=== PATIENT | female | born 2000 | race Caucasian/White ===

== ENCOUNTER 2020-02-25 08:28 | Emergency (ER) | payer OTHER ==
[2020-02-25 09:06] LABS: APPEARANCE,URINE CLEAR; BILIRUBIN,URINE NEGATIVE (NEGATIVE); COLOR,URINE YELLOW; GLUCOSE, URINE NEGATIVE (NEGATIVE); KETONES,URINE NEGATIVE (NEGATIVE); LEUKOCYTE ESTERASE,URINE NEGATIVE (NEGATIVE); NITRITE,URINE NEGATIVE (NEGATIVE); PROTEIN,URINE NEGATIVE (NEGATIVE); URINE SPECIFIC GRAVITY 1.006; UROBILINOGEN,URINE NEGATIVE mg/dL (<2.0)
[2020-02-25 10:36] LABS: ABSOLUTE EOSINOPHILS # (AUTO) 0.1 10^3/uL (0.0-0.6); ABSOLUTE MONOCYTES (AUTO) 0.3 10^3/uL (0.1-1.4); ABSOLUTE NEUT (AUTO) 4.3 10^3/uL (1.7-8.2); BASOPHILS % (AUTO) 0.4 % (0-2); EOSINOPHILS % (AUTO) 1.5 % (0-6); HEMATOCRIT 40.3 % (36.0-47.0); HEMOGLOBIN 13.8 g/dL (12.0-15.5); LYMPHOCYTES % (AUTO) 30.4 % (13-45); MEAN CORPUSCULAR HEMOGLOBIN 29.9 pg (27.0-33.4); MEAN CORPUSCULAR HGB CONC 34.3 g/dL (32.0-36.0); MEAN CORPUSCULAR VOLUME 87 fl (80-97); MONOCYTES % (AUTO) 4.2 % (3-13); PLATELET COUNT 276 10^3/uL (150-450); RED BLOOD COUNT 4.61 10^6/uL (3.72-5.28); SEGMENTED NEUTROPHILS % (AUTO) 63.5 % (42-78); TOTAL CELLS COUNTED % (AUTO) 100 %; WHITE BLOOD COUNT 6.7 10^3/uL (4.0-10.5)
[2020-02-25] MEDS ORDERED: NORMAL SALINE 1000 ML 1,000 ML IV ONE (11:34)
--- NOTE | 2020-02-25 11:46 | ER Document Report ---
ED GI/ - General Chief Complaint: Vaginal Bleeding Stated Complaint: VAGINAL BLEEDING Time Seen by Provider: 02/25/20 11:01 Primary Care Provider: Anthony Magallanes REHABILITATION MANAGER [Provider Group] - Follow up as needed [facility] [[facility] - Follow up as needed Mode of Arrival: Ambulatory Information source: Patient Notes: Patient presents reporting heavy menses for the past 5 days with dizziness. Patient states her symptoms worsened yesterday. Patient denies passing any clots. Patient denies any urinary symptoms. Patient does report some mild cramping. Patient does have a Nexplanon that was placed last year. - HPI Patient complains to provider of: Pelvic pain, Vaginal bleeding. No: Vaginal discharge, Vomiting Onset: Other - 5 days Timing/Duration: Persistent Quality of pain: Cramping Pain Level: 1 Vaginal bleeding (Compared to normal period): Heavier. denies: Passing clots Sexual history: Active Associated symptoms: Lightheaded. denies: Dysuria, Fever, Urinary hesitancy, Urinary frequency, Urinary retention, Urinary urgency, Vomiting Exacerbated by: Denies Relieved by: Denies Similar symptoms previously: No Recently seen / treated by doctor: No - Related Data Allergies/Adverse Reactions: No Known Allergies Allergy (Unverified 02/25/20 08:35) Past Medical History - General Information source: Patient Last Menstrual Period: 02/21/2019 - Social History Smoking Status: Never Smoker Frequency of alcohol use: None Drug Abuse: None Occupation: [employer] Lives with: Spouse/Significant other Family History: Reviewed & Not Pertinent - Medical History Medical History: Negative Past Surgical History: Reports: Hx Appendectomy - 2013 Review of Systems - Review of Systems Constitutional: No symptoms reported. denies: Fever, Recent illness EENT: No symptoms reported Cardiovascular: Lightheaded. denies: Chest pain Respiratory: No symptoms reported. denies: Cough, Short of breath Gastrointestinal: Abdominal pain. denies: Nausea, Vomiting Genitourinary: No symptoms reported. denies: Dysuria Female Genitourinary: Heavy/abnormal periods, Irregular period, Vaginal bleeding. denies: Musculoskeletal: No symptoms reported. denies: Back pain Skin: No symptoms reported Hematologic/Lymphatic: No symptoms reported Neurological/Psychological: No symptoms reported Physical Exam - Vital signs Vitals: Temp Pulse Resp BP Pulse Ox 98.4 F 68 14 142/66 H 100 02/25/20 08:36 01/20/21 08:36 02/25/20 08:36 02/25/20 08:36 02/25/20 08:36 - General General appearance: Appears well, Alert In distress: None - HEENT Head: Normocephalic, Atraumatic Eyes: Normal Conjunctiva: Normal Nasal: Normal Mouth/Lips: Normal Mucous membranes: Normal Neck: Normal, Supple - Respiratory Respiratory status: No respiratory distress Chest status: Nontender Breath sounds: Normal. No: Rales, Rhonchi, Stridor, Wheezing Chest palpation: Normal - Cardiovascular Rhythm: Regular Heart sounds: S1 appreciated, S2 appreciated - Abdominal Inspection: Normal Distension: No distension Bowel sounds: Normal Tenderness: Tender - lower pelvic Organomegaly: No organomegaly - Genitourinary External exam: Normal Speculum exam: Cervix closed Vaginal bleeding: Mild Bimanuel exam: Normal. No: Adnexal mass, Adnexal tenderness Notes: RN kaycee as standby - Back Back: Normal, Nontender. No: CVA tenderness - Extremities General upper extremity: Normal inspection, Normal ROM General lower extremity: Normal inspection, Normal ROM - Neurological Neuro grossly intact: Yes Cognition: Normal Yasmin Coma Scale Eye Opening: Spontaneous Yasmin Coma Scale Verbal: Oriented [place] Coma Scale Motor: Obeys Commands [place] Coma Scale Total: 15 - Psychological Associated symptoms: Normal affect, Normal mood - Skin Skin Temperature: Warm Skin Moisture: Dry Skin Color: Normal Course - Re-evaluation Re-evalutation: 02/25/20 14:37 Patient with hemorrhagic right ovarian follicle noted on ultrasound. Patient with stable vital signs and H&H. Patient with incidental findings on urinalysis worrisome for UTI, culture will be obtained. Patient encouraged to follow-up with a infection control manager for follow-up from today's visit. Discussed worsening signs or symptoms of patient should return immediately for. Patient verbalized understanding and is agreeable with discharge plan of care. - Vital Signs Vital signs: Temp Pulse Resp BP Pulse Ox 98.4 F 50 L 16 116/53 L 99 02/25/20 14:17 02/25/20 14:17 02/25/20 14:17 02/25/20 14:17 02/25/20 14:17 - Laboratory Results Result Diagrams: 02/25/20 09:57 02/25/20 09:57 Laboratory Results Interpreted: 02/25/20 02/25/20 08:44 09:57 Sodium 136.7 L Urine Blood LARGE H 02/25/20 14:37 Labs- All tests 24 hr 02/25/20 02/25/20 02/25/20 08:44 09:57 09:57 WBC 6.7 RBC 4.61 Hgb 13.8 Hct 40.3 MCV 87 MCH 29.9 MCHC 34.3 RDW 13.0 Plt Count 276 Lymph % (Auto) 30.4 [place] % (Auto) 4.2 Eos % (Auto) 1.5 Baso % (Auto) 0.4 Absolute Neuts (auto) 4.3 Absolute Lymphs (auto) 2.0 Absolute Monos (auto) 0.3 Absolute Eos (auto) 0.1 Absolute Basos (auto) 0.0 Seg Neutrophils % 63.5 Sodium 136.7 L Potassium 4.5 Chloride 106 Carbon Dioxide 26 Anion Gap 5 BUN 9 Creatinine 0.65 Est GFR ( Amer) > 60 Est GFR (MDRD) Non-Af > 60 Glucose 104 Calcium 9.6 Serum HCG, Qual Urine Color YELLOW Urine Appearance CLEAR Urine pH 7.0 Ur Specific Dillon 1.006 Urine Protein NEGATIVE Urine Glucose (UA) NEGATIVE Urine Ketones NEGATIVE Urine Blood LARGE H Urine Nitrite NEGATIVE Urine Bilirubin NEGATIVE Urine Urobilinogen NEGATIVE Ur Leukocyte Esterase NEGATIVE Urine WBC (Auto) 58 Urine RBC (Auto) >182 Urine Bacteria (Auto) TRACE Squamous Epi Cells Auto 2 Urine Mucus (Auto) RARE Urine Ascorbic Acid NEGATIVE Epi Cells (Wet Prep) Bacteria (Wet Prep) Trichomonas (Wet Prep) Vaginal WBC Vaginal RBC Vaginal Yeast 02/25/20 02/25/20 09:57 12:31 WBC RBC Hgb Hct MCV MCH MCHC RDW Plt Count Lymph % (Auto) [place] % (Auto) Eos % (Auto) Baso % (Auto) Absolute Neuts (auto) Absolute Lymphs (auto) Absolute Monos (auto) Absolute Eos (auto) Absolute Basos (auto) Seg Neutrophils % Sodium Potassium Chloride Carbon Dioxide Anion Gap BUN Creatinine Est GFR ( Amer) Est GFR (MDRD) Non-Af Glucose Calcium Serum HCG, Qual NEGATIVE Urine Color Urine Appearance Urine pH Ur Specific Dillon Urine Protein Urine Glucose (UA) Urine Ketones Urine Blood Urine Nitrite Urine Bilirubin Urine Urobilinogen Ur Leukocyte Esterase Urine WBC (Auto) Urine RBC (Auto) Urine Bacteria (Auto) Squamous Epi Cells Auto Urine Mucus (Auto) Urine Ascorbic Acid Epi Cells (Wet Prep) 3+ EPITHELIALS SEEN Bacteria (Wet Prep) 4+ BACTERIA SEEN Trichomonas (Wet Prep) NO TRICHOMONAS SEEN Vaginal WBC FEW WBCS SEEN Vaginal RBC 4+ RBCS SEEN Vaginal Yeast NO YEAST SEEN Critical Laboratory Results Reviewed: No Critical Results - Radiology Results Critical Radiology Results Reviewed: No Critical Results - EKG Interpretation by Me EKG shows normal: Sinus rhythm Rate: Normal Rhythm: NSR When compared to previous EKG there are: Previous EKG unavailable Additional EKG results interpreted by me: 02/25/20 13:33 Sinus rhythm with a rate of 56, QTc 402, no acute ischemic changes no prior EKG available for comparison Discharge - Discharge Clinical Impression: Hemorrhagic cyst, Vagina bleeding UTI (urinary tract infection) Qualifiers: Urinary tract infection type: site unspecified Hematuria presence: with hematuria Qualified Code(s): N39.0 - Urinary tract infection, site not specified Condition: Stable Disposition: HOME, SELF-CARE Instructions: Cephalexin ([facility]), Urinary Tract Infection ([facility]), Vaginal Bleeding ([facility]) Additional Instructions: Return immediately for any new or worsening symptoms: Worsening pain, increased bleeding, lightheadedness dizziness or any concerning new symptoms Followup with your primary care provider, call tomorrow to make a followup appoi ntment Follow-up with infection control manager for further evaluation, call today to make a follow- up appointment Prescriptions: Cephalexin Monohydrate [Keflex 500 mg Capsule] 500 mg PO BID 5 Days #10 capsule Forms: Return to Work Referrals: [facility] [Provider Group] - Follow up as needed Anthony Magallanes REHABILITATION MANAGER [Provider Group] - Follow up as needed
[2020-02-25 12:12] LABS: ANION GAP 5 (5-19); BLOOD UREA NITROGEN 9 mg/dL (7-20); CALCIUM 9.6 mg/dL (8.4-10.2); CARBON DIOXIDE 26 mmol/L (22-30); CHLORIDE 106 mmol/L (98-107); GLUCOSE 104 mg/dL (75-110); POTASSIUM 4.5 mmol/L (3.6-5.0)
[2020-02-25 13:18] LABS: T.VAGINALIS (WET MOUNT) NO TRICHOMONAS SEEN; YEAST (WET MOUNT) NO YEAST SEEN
[2020-02-25 13:19] LABS: BACTERIA (WET MOUNT) 4+ BACTERIA SEEN; EPITHELIALS (WET MOUNT) 3+ EPITHELIALS SEEN; RBCS (WET MOUNT) 4+ RBCS SEEN; WBCS (WET MOUNT) FEW WBCS SEEN
--- NOTE | 2020-02-25 14:06 | RADIOLOGY REPORT (SQ) ---
EXAM DESCRIPTION: U/S NON OB PEL TV W/DOPPLER IMAGES COMPLETED DATE/TIME: 02/25/2020 12:33 pm REASON FOR STUDY: pelvic pain, vag bleeding. LMP 02/22/2020. COMPARISON: None. TECHNIQUE: Dynamic and static grayscale images acquired of the pelvis via transvaginal approach and recorded on PACS. Additional selected color Doppler and spectral images recorded. LIMITATIONS: None. FINDINGS: UTERUS: Contour normal. No mass. ENDOMETRIAL STRIPE: No focal or generalized thickening. No masses. CERVIX: No nabothian cysts. RIGHT OVARY AND DOPPLER: Right ovary has normal size and contour. Small ovarian follicles. Mildly c omplex hemorrhagic ovarian follicle is seen. Color and spectral Doppler imaging demonstrate normal v ascular flow to the right ovary. LEFT OVARY AND DOPPLER: Left ovary has normal size and contour. Normal appearing ovarian follicles. Color and spectral Doppler imaging demonstrate normal vascular flow to the left ovary. FREE FLUID: There is a small amount of free fluid in the right adnexa. OTHER: No other significant finding. MEASUREMENTS: UTERUS: 7.7 x 4.5 x 3.6 cm ENDOMETRIAL STRIPE: 4 mm RIGHT OVARY: 3.9 x 3.3 x 1.6 cm. LEFT OVARY: 1.9 x 1.4 cm. IMPRESSION: Hemorrhagic right ovarian follicle with small amount of free fluid in the right adnexa. TECHNICAL DOCUMENTATION: JOB ID: [id number] [employer]- All Rights Reserved Rev-06/22 Reading location - IP/workstation name: [email or web address]
[2020-02-25 14:19] VITALS: BP 116/53
[2020-02-25 14:50] LABS: CHLAM PCR NOT DETECTED (NOT DETECT)
--- NOTE | 2020-02-25 19:25 | EKG REPORT ---
SEVERITY:- NORMAL ECG - SINUS RHYTHM : Confirmed by: Robin Yoder MD 25-Feb-2020 19:24:44
== END 2020-02-25 14:47 | disposition home or self-care (01) ==
LOC: ER 08:28
DX: N39.0 Urinary tract infection, site not specified (principal); N83.201 Unspecified ovarian cyst, right side; N92.1 Excessive and frequent menstruation with irregular cycle; R42 Dizziness and giddiness; R10.2 Pelvic and perineal pain; Z97.5 Presence of (intrauterine) contraceptive device
CPT/HCPCS: 93005; 99285; 96360; 36415; 87086; 87210; 84703; 85025; 87088; 80048; 81001; 87491; 87591; 76830; 93976; 93010; J7030